=== PATIENT | female | born 1955 | race Caucasian/White ===

== ENCOUNTER 2018-09-27 23:07 | Emergency (ER) | payer BC ==
--- OUTSIDE RECORDS SUMMARY | 2018-09-27 23:11 | XMS REPORT ---
:1955 [facility] Address [address] [place] [address] Dr. Gloria. [address] [place] [id number] Care Team Providers Name Role Phone DR ALEE KHAN Unavailable Unavailable Problems This patient has no known problems. Allergies, Adverse Reactions, Alerts This patient has no known allergies or adverse reactions. Medications This patient has no known medications. Results Test Description Test Time Test Comments Text Results Atomic Results Result Comments GLUCOMETER GLUCOSE- LAB USE ONLY 2017-04-24 07:54:00 Test Item Value Reference Range Comments GLUCOMETER (test code=GMG) 148 mg/dL 70-100 CLEANED METERMeter ID: [id number]: [id number] CELESTE CONN GLUCOMETER GLUCOSE- LAB USE [id number] 08:41:00 Test Item Value Reference Range Comments GLUCOMETER (test code=GMG) 151 mg/dL 70-100 Meter ID: [id number]: [id number] CORY ANDRADE
--- OUTSIDE RECORDS SUMMARY | 2018-09-27 23:11 | XMS REPORT | Clinical Summary ---
:1955 Author Organization [facility] Address [address] [place] [address] Care Team Providers Name Role Phone Asked, No Pcp Primary Care Provider Unavailable Allergies Active Allergy Reactions Severity Noted Date Comments Rabeprazole Shortness Of Breath High 09/21/2017 Codeine GI Intolerance 09/21/2017 Dye Other (See Comments) 09/21/2017 Passing out Medications Medication Sig Dispensed Refills Start Date End Date Status atorvastatin Take 10 mg by 0 Active (LIPITOR) 10 MG mouth nightly. tablet metFORMIN Take 500 mg by 0 Active (GLUMETZA) 500 mg mouth every 24 hr tablet evening. ALPRAZolam (XANAX) Take 0.125 mg by 0 Active 0.25 MG tablet mouth nightly as needed for anxiety. INSULIN LISPRO Inject 20 Units 0 Active (HUMALOG KWIKPEN under the skin 3 INSULIN SUBQ) (three) times a day with meals. Sliding scale insulin GLARGINE Inject 50-60 0 Active (TOUJEO SOLOSTAR Units under the U-300 INSULIN) 300 skin every unit/mL (1.5 mL) evening. 50-60 insulin pen units once a day per patient aspirin (ECOTRIN) Take 81 mg by 0 Active 81 MG enteric mouth daily. coated tablet losartan (COZAAR) Take 25 mg by 0 Active 25 MG tablet mouth daily. omeprazole Take 40 mg by 0 Active (PriLOSEC) 40 MG mouth daily. capsule montelukast Take 10 mg by 0 Active (SINGULAIR) 10 mg mouth daily. tablet cholecalciferol, Take 1 tablet by 0 Active vitamin D3, mouth daily. (VITAMIN D3) 5,000 unit tablet L gasseri/B Take 1 tablet by 0 Active bifidum/B longum mouth daily. ([employer] HEALTH ORAL) gluc vergara/chondro vergara Take 1 tablet by 0 Active A/vit C/Mn mouth daily. (GLUCOSAMINE 1500 COMPLEX ORAL) multivitamin Take 1 tablet by 0 Active (THERAGRAN) tablet mouth daily. cranberry 500 mg Take 1 capsule 0 Active capsule by mouth daily. BLACK COHOSH ORAL Take 90 mg by 0 Active mouth daily. docusate sodium Take 200 mg by 0 Active (COLACE) 100 MG mouth daily. capsule melatonin 10 mg Take 1 capsule 0 Active capsule by mouth nightly. calcium carbonate Chew 1,200 mg 0 Active (TUMS) 200 mg daily. calcium (500 mg) chewable tablet azelastine 1 spray into 0 Active (ASTELIN) 137 mcg each nostril 2 (0.1 %) nasal (two) times a spray day. Use in each nostril as directed amLODIPine Take 5 mg by 0 Discontinued (NORVASC) 5 mg mouth daily. 8 tablet SOTALOL HCL Take 40 mg by 0 Discontinued (SOTALOL ORAL) mouth 2 (two) 8 times a day. apixaban (ELIQUIS) Take 5 mg by 0 Discontinued 5 mg tablet mouth 2 (two) 8 times a day. OMEPRAZOLE/SODIUM Take 1 tablet by 0 Discontinued BICARBONATE mouth daily 8 (ZEGERID ORAL) before lunch. sucralfate Take 10 mL (1 g 1200 mL 0 09/23/2017 (CARAFATE) 100 total) by mouth 8 mg/mL suspension 4 (four) times a day with meals and nightly for 30 days. colchicine 0.6 mg Take 0.5 tablets 30 tablet 0 09/23/2017 tablet (0.3 mg total) 8 by mouth 2 (two) times a day for 30 days. fluticasone Two puffs 12 g 1 10/27/2017 Discontinued (FLOVENT HFA) 220 SWALLOWED BID 8 mcg/actuation inhaler hyoscyamine Take 1 tablet 120 tablet 4 11/29/2017 (LEVSIN) 0.125 mg (0.125 mg total) 8 tablet by mouth every 4 (four) hours as needed for cramping for up to 30 days. 1 sublingual every 4 hours as needed FLOVENT HFA 220 INHALE 2 PUFFS 12 g 1 12/26/2017 Discontinued mcg/actuation BY MOUTH TWICE A 8 inhaler DAY. RINSE MOUTH AFTER EACH USE apixaban (ELIQUIS) Take 1 tablet (5 60 tablet 0 06/29/2018 5 mg tablet mg total) by 9 mouth 2 (two) times a day for 30 days. Active Problems Problem Noted Date PAF (paroxysmal atrial fibrillation) 09/22/2017 Encounters Date Type Specialty Care Team Description 06/28/2018 Surgery Procedural Cardiology Deon Anderson EP LOOP RECORDER MD Kyle INSERTION MDT [[id number] (CPT)] 06/28/2018 Hospital Procedural Cardiology Deon Anderson PAF (paroxysmal Encounter MD Kyle atrial fibrillation) ([facility]) 12/26/2017 Refill Gastroenterology Elias Parks MD 12/01/2017 Telephone Gastroenterology Radha Patel [place] 11/29/2017 Office Visit Gastroenterology Elias Parks Esophageal dysphagia (Primary Dx); MD Roshan Irritable bowel syndrome with both constipation and diarrhea 11/08/2017 Telephone Gastroenterology Radha Patel MA 10/27/2017 Surgery Gastroenterology Elias Parks EGD with cold bx MD Roshan 10/27/2017 Anesthesia Event Gastroenterology Shanice Caballero CRNA 10/27/2017 Hospital Gastroenterology Elias Parks PAF (paroxysmal Encounter MD Roshan atrial fibrillation) (Primary Dx) 10/27/2017 Telephone Gastroenterology Radha Patel MA 10/16/2017 Telephone Gastroenterology Elias Parks MD 10/12/2017 Surgery Gastroenterology Elias Parks MD 10/12/2017 Anesthesia Event Gastroenterology Archana Mckinley 10/12/2017 [facility] Gastroenterology Elias Parks PAF (paroxysmal Encounter MD Roshan atrial fibrillation) (Primary Dx) 10/11/2017 Telephone Gastroenterology Elias Parks MD after 09/26/2017 Social History Tobacco Use Types Packs/Day Years Used Date Never Smoker Smokeless Tobacco: Never Used Alcohol Use Drinks/Week oz/Week Comments No Sex Assigned at Date Recorded Not on file Job Start Date Occupation Industry Not on file Not on file Not on file Travel History Travel Start Travel End No recent travel history available. Last Filed Vital Signs Vital Sign Reading Time Taken Blood Pressure 176/85 06/28/2018 7:30 AM [employer] Pulse 70 06/28/2018 7:30 AM [employer] Temperature 36.7 C (98.1 F) 06/28/2018 5:50 AM [employer] Respiratory Rate 16 06/28/2018 7:30 AM [employer] Oxygen Saturation 98% 06/28/2018 7:30 AM [employer] REPA[employer] Inhaled Oxygen Concentration - - Weight 125 kg (275 lb 5 oz) 06/28/2018 6:17 AM [employer] REPA[employer] Height 167.6 cm (5' 6") 06/28/2018 6:17 AM [employer]PA[employer] Body Mass Index 44.44 06/28/2018 6:17 AM [employer] REPAIRER Plan of Treatment Health Maintenance Due Date Last Done Comments CERVICAL CANCER SCREENING 1975 BREAST CANCER SCREENING 02/24/2004 COLON CANCER SCREENING 02/24/2004 SHINGLES VACCINES (#1) 02/24/2004 INFLUENZA VACCINE 01/31/2018 Implants Implanted Type Area [employer] Att[employer] Device Shelf Model / Identifier Expiration Serial / Date Lot System Reveal Linq W/Monitors - [id number] Cardiac N/A: [employer] 2018 LINQSYS / Implanted: 06/28/2018 (Quantity not on file) Pacemakers and N/A CARDIAC RHYTHM / Related DISEASE [facility] [id number] Products Procedures Procedure Name Priority Date/Time Associated Comments Diagnosis EP SUBCUTANEOUS CARDAIC RHYTHM Routine 06/28/2018 PAF (paroxysmal Results for MONITOR INSERT W PROG 7:29 AM [employer] IN[employer] REPAIRER atrial this procedure fibrillation) are in the ([facility]) results section. POC GLUCOSE Routine 06/28/2018 Results for 5:57 AM [employer] REPA[employer]ER this procedure are in the results section. SURGICAL PATHOLOGY REQUEST Routine 10/27/2017 Results for 1:41 PM CDT this procedure are in the results section. ESOPHAGOGASTRODUODENOSCOPY (EGD) 10/27/2017 Esophagitis 12:30 PM CDT POC GLUCOSE Routine 10/27/2017 Results for 11:48 AM CDT this procedure are in the results section. ESOPHAGOGASTRODUODENOSCOPY (EGD) 10/12/2017 Esophageal pain 1:30 PM CDT POC GLUCOSE Routine 10/12/2017 Results for 12:57 PM CDT this procedure are in the results section. after 09/26/2017 Results Cv electrophysiology procedure (06/28/2018 7:29 AM [employer] LINE INST[employer]ER AND REPAIRER) Narrative Performed At CRIMINAL ANALYST: LEVON Anderson MD COMPLICATIONS: None. ESTIMATED BLOOD LOSS: 5 mL SPECIMEN REMOVED: None. PROCEDURE PERFORMED: Implantable loop recorder placement. ANESTHESIA: Local. PREOPERATIVE DIAGNOSES: 1.Paroxysmal atrial fibrillation, status post pulmonary vein ablation in August 2017. 2.Diastolic-related congestive heart failure. 3.Coronary artery disease. 4.Morbid obesity. 5.Obstructive sleep apnea. 6.Diabetes. 7.Hypertension. POSTOPERATIVE DIAGNOSES: 1.Paroxysmal atrial fibrillation, status post pulmonary vein ablation in August 2017. 2.Diastolic-related congestive heart failure. 3.Coronary artery disease. 4.Morbid obesity. 5.Obstructive sleep apnea. 6.Diabetes. 7.Hypertension. HISTORY OF PRESENT ILLNESS: The patient is a 63-year-old female with a history of atrial fibrillation, status post pulmonary vein ablation, who was referred for an implantable loop recorder placement for long-term surveillance of atrial arrhythmias post ablation. PROCEDURE IN DETAIL: The patient was brought to the procedure room in a fasting state. Informed consent was obtained.The patient was prepped and draped in the usual fashion. Lidocaine 1% was administered to the left parasternal region.A 2-cm incision was made using the implantable loop recorder deployment tool.The device was deployed and hemostasis was achieved.Incision was closed using Dermabond and Steri-Strips.The patient tolerated the procedure well with no hemodynamic, neurologic, or respiratory sequelae. FINDINGS: The patient had a [employer] implantable loop recorder placement, serial #[id number]. CONCLUSION: Successful implantable loop recorder placement. RECOMMENDATIONS: The patient will complete the appropriate postprocedure wound care and activity restrictions. Performing Organization Address City/[facility] Phone Number [facility] [address] [place] [address] POC glucose (06/28/2018 5:57 AM POWER LINE INSTALLER AND REPAIRER)Only the most recent of3 resultswithin the time period is included. POC glucose 135 (H) 65 - 99 mg/dL [facility] Comment: [facility] Notified RN Meter ID: [id number] Industrial Automation Specialist: Alex Herrera Performing Organization Address City/[facility] Phone Number [facility] DEPARTMENT OF PATHOLOGY AND [address] [place] [address] GENOMIC MEDICINE [address] [address] Surgical pathology request (10/27/2017 1:41 PM CDT) [facility] DEPARTMENT OF PATHOLOGY AND GENOMIC MEDICINE Surgical pathology report See link below for PDF [facility] DEPARTMENT OF Lab Report PATHOLOGY AND GENOMIC MEDICINE Result status This is Revised Report [facility] DEPARTMENT OF to [id number] PATHOLOGY AND GENOMIC MEDICINE Performing Organization Address City/State/Zipcode Phone Number [facility] DEPARTMENT OF PATHOLOGY AND [address] [place] [address] GENOMIC MEDICINE after 09/26/2017 Insurance Payer Benefit Plan / Group Subscriber ID Type Phone Address [facility] LAURENCE SAVAGE xxxxxxxxxxxx PPO Advance Directives Patient has advance care planning documents on file. For more information, please contact:Kristian Pantoja[address] [place] [address]
--- NOTE | 2018-09-28 00:22 | ER ---
Nurse's Notes [facility] Name: Mary Solano Age: 63 yrs Sex: Female : 1955 Arrival Date: 09/27/2018 Time: 23:13 Bed 18 Private MD: Brandon Horowitz Diagnosis: Contusion of right wrist Presentation: 09/27 23:14 Presenting complaint: Patient states: I punched a chair and it had a board in it and jb4 now my wrist is swollen. 23:14 Transition of care: patient was not received from another setting of care. Onset of jb4 symptoms was September 27, 2018. Risk Assessment: Do you want to hurt yourself or someone else? Patient reports no desire to harm self or others. Initial Sepsis Screen: Does the patient meet any 2 criteria? No. Patient's initial sepsis screen is negative. Does the patient have a suspected source of infection? No. Patient's initial sepsis screen is negative. Care prior to arrival: None. 23:14 Method Of Arrival: Ambulatory jb4 23:14 Acuity: KATTY 4 jb4 Triage Assessment: 23:14 General: Appears in no apparent distress. uncomfortable, Behavior is calm, cooperative, jb4 appropriate for age. Pain: Complains of pain in medial aspect of right wrist Pain does not radiate. Pain currently is 5 out of 10 on a pain scale. at worst was 6 out of 10 on a pain scale. EENT: No signs and/or symptoms were reported regarding the EENT system. Neuro: Level of Consciousness is awake, alert, obeys commands, Oriented to person, place, time, situation. Cardiovascular: Patient's skin is warm and dry. Respiratory: Airway is patent Respiratory effort is even, unlabored, Respiratory pattern is regular, symmetrical. GI: No signs and/or symptoms were reported involving the gastrointestinal system. : No signs and/or symptoms were reported regarding the genitourinary system. Derm: Skin is intact, Skin is pink, warm \T\ dry. Musculoskeletal: Circulation, motion, and sensation intact. Range of motion: limited in right wrist. Injury Description: Bruise sustained to right hand is purple. Historical: - Allergies: 23:14 Aciphex; jb4 23:14 Codeine; jb4 23:14 IV dye; jb4 - Home Meds: 23:14 Alprazolam Oral [Active]; aspirin 81 mg Oral chew 1 tab once daily [Active]; jb4 atorvastatin Oral [Active]; glucosamine sulfate Oral [Active]; Hydrocortisone Acetate Rectal [Active]; Eliquis 5 mg Oral tab [Active]; Humalog Sub-Q [Active]; Metformin Oral [Active]; multivitamin with minerals Oral [Active]; sotalol 40 Oral [Active]; Stool Softener-Laxative 8.6-50 mg Oral tab 2 tabs once daily [Active]; Toujeo SoloStar subcutaneous [Active]; Tramadol Oral [Active]; Victoza 2-Mj 0.6 mg/0.1 mL (18 mg/3 mL) subcutaneous pnij [Active]; Zegerid 20-1.1 mg-gram Oral cap 1 cap once daily [Active]; Vitamin D Oral [Active]; losartan potassium [Active]; - PMHx: 23:14 Atrial Fib; Diabetes - IDDM; Hypertension; cardioversion; jb4 - PSHx: 23:14 hemorrhoidectomy; right knee; hysterosopy; endometrial ablation; left knee; jb4 Hysterectomy; Angioplasty; Stint (LAD); angiogram; atrial ablation; cataract surgery; atrial ablation; - Immunization history:: Adult Immunizations unknown, Flu vaccine is up to date. - Social history:: Smoking status: Patient/guardian denies using tobacco, Patient/guardian denies using alcohol. - Ebola Screening: : No symptoms or risks identified at this time. Screenin:15 Abuse screen: Denies threats or abuse. Nutritional screening: No deficits noted. jb4 Tuberculosis screening: No symptoms or risk factors identified. Fall Risk None identified. Assessment: 23:14 General: see triage assessment.. jb4 09/28 00:35 Reassessment: Patient appears in no apparent distress at this time. Patient and/or jb4 family updated on plan of care and expected duration. Pain level reassessed. Patient is alert, oriented x 3, equal unlabored respirations, skin warm/dry/pink. Vital Signs: 09/27 23:14 BP 189 / 85; Pulse 86; Resp 16; Temp 98.1(O); Pulse Ox 100% on R/A; Weight 122.47 kg jb4 (R); Height 5 ft. 6 in. (167.64 cm) (R); Pain 5/10; 09/28 00:00 BP 161 / 85; Pulse 81; Resp 16; Pulse Ox 100% on R/A; jb4 09/27 23:14 Body Mass Index 43.58 (122.47 kg, 167.64 cm) jb4 ED Course: 09/27 23:13 Patient arrived in ED. es 23:13 Brandon Horowitz MD is Private Physician. es 23:14 Jeromy Yepez, RN is Primary Nurse. jb4 23:14 Arm band placed on left wrist. jb4 23:15 Patient has correct armband on for positive identification. Bed in low position. Call jb4 light in reach. Side rails up X 1. Pulse ox on. NIBP on. 23:24 Triage completed. jb4 23:41 Pavel Abarca PA is PHCP. jr8 23:41 Cecilio Garcia MD is Attending Physician. jr8 09/28 00:21 Brandon Horowitz MD is Referral Physician. jr8 00:26 X-ray completed. Portable x-ray completed in exam room. Patient tolerated procedure kw well. 00:30 Wrist Right 3 View XRAY In Process Unspecified. EDMS 00:38 No provider procedures requiring assistance completed. Patient did not have IV access jb4 during this emergency room visit. Administered Medications: No medications were administered Outcome: 00:22 Discharge ordered by . jr8 00:38 Discharged to home ambulatory, with family. jb4 00:38 Condition: stable 00:38 Discharge instructions given to patient, family, Instructed on discharge instructions, follow up and referral plans. Demonstrated understanding of instructions, follow-up care. 00:38 Patient left the ED. jb4 Signatures: Dispatcher [employer] EDKS Juju Marquez Kimberlee Pavel Abarca PA PA jr8 Jeromy Yepez, RN RN jb4
--- NOTE | 2018-09-28 00:22 | EDPHYS ---
Physician Documentation [facility] [place] Name: Mary Solano Age: 63 yrs Sex: Female : 1955 Arrival Date: 09/27/2018 Time: 23:13 Bed 18 Private MD: Brandon Horowitz ED Physician Cecilio Garcia HPI: 09/28 00:18 This 63 yrs old Female presents to ER via Ambulatory with complaints of Wrist jr8 Injury. 00:18 The patient or guardian reports pain, swelling, tenderness. The complaints affect the jr8 right wrist diffusely. Context: The problem was sustained at home, resulted from a direct blow. Onset: The symptoms/episode began/occurred acutely, today. Modifying factors: The symptoms are alleviated by nothing, the symptoms are aggravated by movement. Associated signs and symptoms: The patient has no apparent associated signs or symptoms. The patient has not experienced similar symptoms in the past. The patient has not recently seen a physician. Patient got mad and hit right wrist on back of chair. Caused immediate bruise to right wrist. Stated that pain was getting worse so she wanted to make sure she did not fracture anything . Historical: - Allergies: 09/27 23:14 Aciphex; jb4 23:14 Codeine; jb4 23:14 IV dye; jb4 - Home Meds: 23:14 Alprazolam Oral [Active]; aspirin 81 mg Oral chew 1 tab once daily [Active]; jb4 atorvastatin Oral [Active]; glucosamine sulfate Oral [Active]; Hydrocortisone Acetate Rectal [Active]; Eliquis 5 mg Oral tab [Active]; Humalog Sub-Q [Active]; Metformin Oral [Active]; multivitamin with minerals Oral [Active]; sotalol 40 Oral [Active]; Stool Softener-Laxative 8.6-50 mg Oral tab 2 tabs once daily [Active]; Toujeo SoloStar subcutaneous [Active]; Tramadol Oral [Active]; Victoza 2-Mj 0.6 mg/0.1 mL (18 mg/3 mL) subcutaneous pnij [Active]; Zegerid 20-1.1 mg-gram Oral cap 1 cap once daily [Active]; Vitamin D Oral [Active]; losartan potassium [Active]; - PMHx: 23:14 Atrial Fib; Diabetes - IDDM; Hypertension; cardioversion; jb4 - PSHx: 23:14 hemorrhoidectomy; right knee; hysterosopy; endometrial ablation; left knee; jb4 Hysterectomy; Angioplasty; Stint (LAD); angiogram; atrial ablation; cataract surgery; atrial ablation; - Immunization history:: Adult Immunizations unknown, Flu vaccine is up to date. - Social history:: Smoking status: Patient/guardian denies using tobacco, Patient/guardian denies using alcohol. - Ebola Screening: : No symptoms or risks identified at this time. ROS: 09/28 00:18 Eyes: Negative for injury, pain, redness, and discharge, ENT: Negative for injury, jr8 pain, and discharge, Neck: Negative for injury, pain, and swelling, Cardiovascular: Negative for chest pain, palpitations, and edema, Respiratory: Negative for shortness of breath, cough, wheezing, and pleuritic chest pain, Abdomen/GI: Negative for abdominal pain, nausea, vomiting, diarrhea, and constipation, Back: Negative for injury and pain, Skin: Negative for injury, rash, and discoloration, Neuro: Negative for headache, weakness, numbness, tingling, and seizure. MS/extremity: Positive for ecchymosis, pain, swelling, tenderness, of the right wrist. Exam: 00:18 Eyes: Pupils equal round and reactive to light, extra-ocular motions intact. Lids and jr8 lashes normal. Conjunctiva and sclera are non-icteric and not injected. Cornea within normal limits. Periorbital areas with no swelling, redness, or edema. ENT: Nares patent. No nasal discharge, no septal abnormalities noted. Tympanic membranes are normal and external auditory canals are clear. Oropharynx with no redness, swelling, or masses, exudates, or evidence of obstruction, uvula midline. Mucous membranes moist. Neck: Trachea midline, no thyromegaly or masses palpated, and no cervical lymphadenopathy. Supple, full range of motion without nuchal rigidity, or vertebral point tenderness. No Meningismus. Chest/axilla: Normal chest wall appearance and motion. Nontender with no deformity. No lesions are appreciated. Cardiovascular: Regular rate and rhythm with a normal S1 and S2. No gallops, murmurs, or rubs. Normal PMI, no JVD. No pulse deficits. Respiratory: Lungs have equal breath sounds bilaterally, clear to auscultation and percussion. No rales, rhonchi or wheezes noted. No increased work of breathing, no retractions or nasal flaring. Abdomen/GI: Soft, non-tender, with normal bowel sounds. No distension or tympany. No guarding or rebound. No evidence of tenderness throughout. Back: No spinal tenderness. No costovertebral tenderness. Full range of motion. Skin: Warm, dry with normal turgor. Normal color with no rashes, no lesions, and no evidence of cellulitis. Neuro: Awake and alert, GCS 15, oriented to person, place, time, and situation. Cranial nerves II-XII grossly intact. Motor strength 5/5 in all extremities. Sensory grossly intact. Cerebellar exam normal. Normal gait. 00:18 Musculoskeletal/extremity: Extremities: grossly normal except: noted in the right wrist and right hand: Patient has swelling, bruising, and hematoma to right hand lateral aspect and right wrist. Tender to palpation. No obvious deformity present , ROM: intact in all extremities, full active range of motion, full passive range of motion, limited active range of motion due to pain, limited passive range of motion due to pain, Circulation is intact in all extremities. Sensation intact. Vital Signs: 09/27 23:14 BP 189 / 85; Pulse 86; Resp 16; Temp 98.1(O); Pulse Ox 100% on R/A; Weight 122.47 kg jb4 (R); Height 5 ft. 6 in. (167.64 cm) (R); Pain 5/10; 09/28 00:00 BP 161 / 85; Pulse 81; Resp 16; Pulse Ox 100% on R/A; jb4 09/27 23:14 Body Mass Index 43.58 (122.47 kg, 167.64 cm) jb4 Procedures: 00:18 Splinting: Splint applied to right wrist using diogenes wrap, applied by nurse. Examined by jayleen nj, post splint application: neurovascular intact, 2+ distal pulses palpable, brisk capillary refill noted, Patient tolerated well. MDM: 09/27 23:41 Patient medically screened. jr8 09/28 00:21 Data reviewed: vital signs, nurses notes, radiologic studies, plain films. Data jr8 interpreted: Pulse oximetry: on room air is 100 %. Interpretation: normal. Test interpretation: by ED physician or midlevel provider: plain radiologic studies, No occult fracture identified. Soft Tissue swelling present . Counseling: I had a detailed discussion with the patient and/or guardian regarding: the historical points, exam findings, and any diagnostic results supporting the discharge/admit diagnosis, radiology results, the need for outpatient follow up, a family practitioner, a orthopedic surgeon, to return to the emergency department if symptoms worsen or persist or if there are any questions or concerns that arise at home. 09/27 23:39 Order name: Wrist Right 3 View XRAY jb4 09/28 00:21 Order name: Diogenes wrap-joint; Complete Time: 00:35 jr8 Administered Medications: No medications were administered Disposition: 09/28/18 00:22 Discharged to Home. Impression: Contusion of right wrist. - Condition is Stable. - Discharge Instructions: Contusion, Hand Contusion, Wrist Pain. - Medication Reconciliation Form, Thank You Letter, Antibiotic Education, Prescription Opioid Use form. - Follow up: Brandon Horowitz MD; When: 5 - 6 days; Reason: Recheck today's complaints, Continuance of care, Re-evaluation by your physician. - Problem is new. - Symptoms have improved. Signatures: Dispatcher [employer] EDMS Pavel Abarca PA PA jr8 Jeromy Yepez RN RN jb4 Corrections: (The following items were deleted from the chart) 00:38 00:22 09/28/2018 00:22 Discharged to Home. Impression: Contusion of right wrist. jb4 Condition is Stable. Forms are Medication Reconciliation Form, Thank You Letter, Antibiotic Education, Prescription Opioid Use. Follow up: Brandon Horowitz; When: 5 - 6 days; Reason: Recheck today's complaints, Continuance of care, Re-evaluation by your physician. Problem is new. Symptoms have improved. jr8
[2018-09-28 02:54] VITALS: TEMP 98.1; O2SAT 100
[2018-09-28 02:55] VITALS: BP 161/85
--- NOTE | 2018-09-28 08:38 | RAD REPORT ---
EXAM DESCRIPTION: RAD - Wrist Right 3 View - 09/28/2018 12:30 am CLINICAL HISTORY: Right wrist pain status post injury FINDINGS: No fracture or dislocation is seen. The bones are osteoporotic If the patient continues to have symptoms to suggest an occult fracture then a followup plain film se ayla in 7 days would be recommended.
== END 2018-09-28 00:38 | disposition home or self-care (01) ==
LOC: ER 23:07
DX: S60.211A Contusion of right wrist, initial encounter (principal); W22.03XA Walked into furniture, initial encounter; Y93.89 Activity, other specified; Y92.009 Unspecified place in unspecified non-institutional (private) residence as the place of occurrence of the external cause; Z79.01 Long term (current) use of anticoagulants; Z79.82 Long term (current) use of aspirin; Z79.4 Long term (current) use of insulin; Z88.5 Allergy status to narcotic agent; Z88.8 Allergy status to other drugs, medicaments and biological substances; Z91.041 Radiographic dye allergy status; E11.9 Type 2 diabetes mellitus without complications; I10 Essential (primary) hypertension; I48.91 Unspecified atrial fibrillation
CPT/HCPCS: 99283